=== PATIENT | female | born 2000 | race Hispanic/Latino ===

== ENCOUNTER 2020-08-11 18:42 | Emergency (ER) | payer SELFPAY ==
[~2020-08-11] VITALS: Ht 157.5 cm; Wt 63.5 kg
[2020-08-11] MEDS ORDERED: FAMOTIDINE 20 MG/2 ML VIAL IV STA (19:27)
[2020-08-11] MEDS ORDERED: KETOROLAC TROMETHAMINE 30 MG/ML VIAL IV STA (19:29)
[2020-08-11] MEDS ORDERED: SODIUM CHLORIDE 0.9% 1000ML 1,000 ML IV SCH (19:30)
[2020-08-11] MEDS ORDERED: ONDANSETRON HCL INJ 2MG/ML 2ML 2 MG/ML VIAL IV STA (19:38)
[2020-08-11] MEDS ORDERED: FAMOTIDINE20 MG PO (20:38)
[2020-08-11] MEDS ORDERED: DICYCLOMINE HCL20 MG PO (21:03)
[2020-08-11] MEDS ORDERED: ONDANSETRON ODT8 MG PO (21:04)
== END 2020-08-11 21:10 | disposition home or self-care (01) ==
LOC: FSED 19:40
DX: K52.9 Noninfective gastroenteritis and colitis, unspecified (principal); B34.9 Viral infection, unspecified; E87.6 Hypokalemia; Z86.16 Personal history of COVID-19
CPT/HCPCS: 80048; 81003; 85025; 99284; J1885; J2405; J7030

== ENCOUNTER 2022-09-29 21:00 | Emergency (ER) | payer OTHER ==
[~2022-09-29] VITALS: Ht 154.9 cm; Wt 70.8 kg
[~2022-09-29 21:00] MED LIST: DICYCLOMINE HCL20 MG PO; FAMOTIDINE20 MG PO; ONDANSETRON ODT8 MG PO
[2022-09-29 21:55] LABS: BASOPHILS # (AUTO) 0.1 (0.0-0.1); BASOPHILS % 0.6 % (0.0-1.0); EOSINOPHILS # (AUTO) 0.1 (0.0-0.4); EOSINOPHILS % 0.7 % (0.0-6.0); LYMPHOCYTES # (AUTO) 3.3 (1.0-3.2); LYMPHOCYTES % 31.1 % (18.0-39.1); MEAN CORPUSCULAR HEMOGLOBIN 29.1 pg (28-32); MEAN CORPUSCULAR HGB CONC 33.3 g/dL (31-35); MEAN CORPUSCULAR VOLUME 87.3 fL (81-99); MONOCYTES # (AUTO) 0.7 (0.2-0.8); MONOCYTES % 6.2 % (4.4-11.3); NEUTROPHILS # (AUTO) 6.4 (2.1-6.9); NEUTROPHILS % 60.9 % (38.7-80.0); PLATELET COUNT 212 x10e3/uL (140-360); RED BLOOD COUNT 3.78 x10e6/uL (3.6-5.1); RED CELL DISTRIBUTION WIDTH 13.9 % (11.7-14.4)
[2022-09-29 22:07] LABS: ALBUMIN 3.3 g/dL (3.5-5.0); ANION GAP 12.5 mmol/L (8-16); CALCIUM 8.9 mg/dL (8.4-10.2); CREATININE, SERUM 0.61 mg/dL (0.57-1.11); POTASSIUM 3.5 mmol/L (3.5-5.1)
== END 2022-09-29 23:13 | disposition home or self-care (01) ==
LOC: FSED 21:08
DX: R10.13 Epigastric pain (principal); Z33.1 Pregnant state, incidental
CPT/HCPCS: 36415; 80053; 81003; 83690; 85025; 86900; 99283